=== PATIENT | female | born 1950 | race Caucasian/White ===

== ENCOUNTER 2020-12-21 05:53 | Emergency (ER) | payer MEDICARE, OTHER ==
[2020-12-21] MEDS ORDERED: Nitroglycerin 0.4 MG Tab.SL SL ONE (05:59)
[2020-12-21] MEDS ORDERED: Aspirin 81 MG Tab.Chew PO ONE (05:59)
--- NOTE | 2020-12-21 06:02 | EDM.PDOC ---
<Prerna Sanchez - Last Filed: 12/21/20 10:32> ED HPI GENERAL MEDICAL PROBLEM - General Stated Complaint: BELIEVES SHES HAVING HEART ATTACK Time Seen by Provider: 12/21/20 06:01 - Related Data Allergies Allergy/AdvReac Type Severity Reaction Status Date / Time kiwi Allergy Difficulty Verified 12/21/20 06:15 Swallowing latex Allergy Rash Verified 12/21/20 06:15 Home Meds: Home Meds Pantoprazole Sodium [Protonix] 40 mg PO DAILY 12/21/20 [History] Simvastatin [Zocor] 20 mg PO BEDTIME 12/21/20 [History] traZODone HCl [Trazodone HCl] 50 mg PO BEDTIME 12/21/20 [History] Course - Radiology Interpretation Free Text/Narrative:: [facility] Final Radiology Report Call: [phone] assistance Online chat: [email or web address] Name: PATTI VELASQUEZ Age: 70Years F Date: 12/21/2020 SSN: -- : [id number] Study: CR CHEST 1V FRONTAL Requesting Physician: SHAHZAD REESE Images: 1 Addl Studies: Provided Clinical History: chest pain Contrast: Contrast Medium: Contrast Amount: Contrast Method: CONFIDENTIALITY STATEMENT This report is intended only for use by the referring physician, and only in accordance with law. If you received this in error, call [phone]. Page 1 of 1 PROCEDURE INFORMATION: Exam: XR Chest Exam date and time: 12/21/2020 6:10 AM Age: 70 years old Clinical indication: Other: Chest pain TECHNIQUE: Imaging protocol: XR of the chest. Views: 1 view. COMPARISON: No relevant prior exams. FINDINGS: Lungs: Hazy consolidation in the lower lungs. The mid and upper lungs are clear. Pleural spaces: Unremarkable. No pleural effusion. No pneumothorax. Heart/Mediastinum: Unremarkable. No cardiomegaly. Bones/joints: [id number] degenerative changes of both shoulders. No fractures or dislocations. IMPRESSION: Airspace consolidation in the lower lungs may represent atelectasis or pneumonia. Thank you for allowing us to participate in the care of your patient. Dictated and Authenticated by: Trav Jacinto MD 12/21/2020 8:31 AM Central Time ([place] & [place]) - Re-Assessments/Exams Free Text/Narrative Re-Assessment/Exam: 12/21/20 Findings of examination, lab work, and imaging reviewed with patient and . Will treat pneumonia with Augmentin and Zithromax. Discussed supportiv e cares as well as red flag signs and symptoms which would warrant reevaluation reviewed. Patient and verbalized understanding and agreement with the plan of care. Departure - Departure Time of Disposition: 09:11 Disposition: Home, Self-Care 01 Condition: Good Clinical Impression: Atypical chest pain CAP (community acquired pneumonia) Qualifiers: Laterality: unspecified laterality Qualified Code(s): J18.9 - Pneumonia, unspecified organism Referrals: PCP,Not In Area [Primary Care Provider] - Forms: ED Department Discharge Additional Instructions: Rx: Augmentin Rx: Zithromax 1.) Take all of your antibiotics until gone, even as symptoms improve. 2.) You may take ibuprofen (Advil/Motrin) 400mg every six hours, as pain and persists. You may also take acetaminophen (Tylenol) 650mg every six hours, as pain persists. You may stagger these medications so you are receiving a dose every three hours. 3.) Follow up with primary care provider, or return to the emergency department, with fever, shaking chills, worsening symptoms, or persistent symptoms with 48 h ours of antibiotics. <Shahzad Reese - Last Filed: 12/23/20 03:56> ED HPI GENERAL MEDICAL PROBLEM - General Source of Information: Reports: Patient History Limitations: Reports: No Limitations - History of Present Illness INITIAL COMMENTS - FREE TEXT/NARRATIVE: ED with midsternal chest pain, started last night worse this am, pain worse with deep breathing denies prior heart hx. No vomiting, no radiation nor report fever chills. Left Chest Pain Score (Numeric/FACES): 8 ED ROS GENERAL - Review of Systems Review Of Systems: Comprehensive ROS is negative, except as noted in HPI. ED EXAM, GENERAL - Physical Exam Exam: See Below Exam Limited By: No Limitations General Appearance: Alert, Anxious, Moderate Distress Eye Exam: Bilateral Eye: EOMI Ears: Normal External Exam Nose: Normal Inspection Throat/Mouth: Normal Inspection Head: Atraumatic, Normocephalic Neck: Normal Inspection Respiratory/Chest: No Respiratory Distress, Lungs Clear, Other (shallow respirations) Cardiovascular: No: No Edema (1+) GI/Abdominal: Normal Bowel Sounds, Soft Back Exam: Normal Inspection Extremities: Normal Inspection, Normal Range of Motion Neurological: Alert, Oriented, Normal Cognition Psychiatric: Normal Affect Skin Exam: Warm, Dry, Intact, Normal Color #1 Interpretation EKG Date: 12/21/20 Time: 05:59 Rhythm: NSR Rate (Beats/Min): 77 [place]: Normal P-Wave: Present QRS: Normal QT: Normal Comparison: NA - No Prior EKG Course - Vital Signs Last Recorded V/S: Last Vital Signs Temp 97.5 F 12/21/20 05:58 Pulse 59 L 12/21/20 06:30 Resp 16 12/21/20 05:58 BP 77/47 L 12/21/20 06:30 Pulse Ox 93 L 12/21/20 06:34 - Orders/Labs/Meds Labs: Laboratory Tests 12/21/20 12/21/20 12/21/20 Range/Units 06:05 06:05 06:05 WBC 8.9 (5.0-10.0) 10^3/uL RBC 4.53 (4.2-5.4) 10^6/uL Hgb 14.3 (12.0-16.0) g/dL Hct 42.8 (37.0-47.0) % MCV 94.5 (80-100) fL MCH 31.6 (27.0-34.0) pg MCHC 33.4 (33.0-35.0) g/dL Plt Count 233 (150-450) 10^3/uL Neut % (Auto) 52.6 (42.2-75.2) % Lymph % (Auto) 34.5 (20.5-50.1) % Oliver % (Auto) 9.8 H (2-8) % Eos % (Auto) 2.8 (1.0-3.0) % Baso % (Auto) 0.3 (0.0-1.0) % PT (9.0-12.0) SEC INR (0.9-1.2) D-Dimer, Quantitative 112 (0-400) ng/mL Sodium 143 (136-145) mmol/L Potassium 4.1 (3.5-5.1) mmol/L Chloride 104 (98-107) mmol/L Carbon Dioxide 30 (21-32) mmol/L Anion Gap 13.1 H (7-13) mEq/L BUN 14 (7-18) mg/dL Creatinine 0.77 (0.55-1.02) mg/dL Est Cr Clr Drug Dosing 51.30 mL/min Estimated GFR (MDRD) > 60 BUN/Creatinine Ratio 18.2 (No establ ref range) Glucose 101 H (70-99) mg/dL Calcium 9.3 (8.5-10.1) mg/dL Magnesium 2.0 (1.8-2.4) mg/dL Total Bilirubin 0.4 (0.2-1.0) mg/dL AST 24 (15-37) U/L ALT 44 (14-59) U/L Alkaline Phosphatase 75 (46-116) U/L Troponin I High Sens 11 (<=51) pg/mL Total Protein 7.2 (6.4-8.2) g/dL Albumin 3.7 (3.4-5.0) g/dL Globulin 3.5 Albumin/Globulin Ratio 1.1 Amylase 74 (25-115) U/L Lipase 216 (73-393) U/L Urine Color (YELLOW) Urine Appearance (CLEAR) Urine pH (5.0-9.0) Ur Specific [place] (1.005-1.030) Urine Protein (NEGATIVE) Urine Glucose (UA) (NEGATIVE) Urine Ketones (NEGATIVE) Urine Occult Blood (NEGATIVE) Urine Nitrite (NEGATIVE) Urine Bilirubin (NEGATIVE) Urine Urobilinogen (0.2-1.0) mg/dL Ur Leukocyte Esterase (NEGATIVE) SARS-CoV-2 RNA (MERARI) (NEGATIVE) 12/21/20 12/21/20 12/21/20 Range/Units 06:05 06:18 07:05 WBC (5.0-10.0) 10^3/uL RBC (4.2-5.4) 10^6/uL Hgb (12.0-16.0) g/dL Hct (37.0-47.0) % MCV (80-100) fL MCH (27.0-34.0) pg MCHC (33.0-35.0) g/dL Plt Count (150-450) 10^3/uL Neut % (Auto) (42.2-75.2) % Lymph % (Auto) (20.5-50.1) % Oliver % (Auto) (2-8) % Eos % (Auto) (1.0-3.0) % Baso % (Auto) (0.0-1.0) % PT 9.6 (9.0-12.0) SEC INR 1.0 (0.9-1.2) D-Dimer, Quantitative (0-400) ng/mL Sodium (136-145) mmol/L Potassium (3.5-5.1) mmol/L Chloride (98-107) mmol/L Carbon Dioxide (21-32) mmol/L Anion Gap (7-13) mEq/L BUN (7-18) mg/dL Creatinine (0.55-1.02) mg/dL Est Cr Clr Drug Dosing mL/min Estimated GFR (MDRD) BUN/Creatinine Ratio (No establ ref range) Glucose (70-99) mg/dL Calcium (8.5-10.1) mg/dL Magnesium (1.8-2.4) mg/dL Total Bilirubin (0.2-1.0) mg/dL AST (15-37) U/L ALT (14-59) U/L Alkaline Phosphatase (46-116) U/L Troponin I High Sens (<=51) pg/mL Total Protein (6.4-8.2) g/dL Albumin (3.4-5.0) g/dL Globulin Albumin/Globulin Ratio Amylase (25-115) U/L Lipase (73-393) U/L Urine Color Yellow (YELLOW) Urine Appearance Slightly cloudy (CLEAR) Urine pH 7.5 (5.0-9.0) Ur Specific [place] 1.025 (1.005-1.030) Urine Protein Negative (NEGATIVE) Urine Glucose (UA) Negative (NEGATIVE) Urine Ketones Negative (NEGATIVE) Urine Occult Blood Negative (NEGATIVE) Urine Nitrite Negative (NEGATIVE) Urine Bilirubin Negative (NEGATIVE) Urine Urobilinogen 0.2 (0.2-1.0) mg/dL Ur Leukocyte Esterase Negative (NEGATIVE) SARS-CoV-2 RNA (MERARI) Negative (NEGATIVE) Meds: Medications Discontinued Medications Generic Name Dose Route Start Last Admin Trade Name Freq PRN Reason Stop Dose Admin Al Hydroxide/Mg Hydroxide 30 ml 12/21/20 06:53 12/21/20 07:17 Gi Cocktail Oral Solution 30 Ml PO 12/21/20 06:54 30 ml ONETIME ONE Administration Aspirin 324 mg 12/21/20 05:59 12/21/20 06:07 Aspirin 81 Mg Tab.Chew PO 12/21/20 06:00 324 mg ONETIME ONE Administration Sodium Chloride 1,000 mls @ 999 mls/hr 12/21/20 06:30 12/21/20 06:31 Normal Saline IV 12/21/20 07:30 999 mls/hr .BOLUS ONE Administration Ketorolac Tromethamine 30 mg 12/21/20 08:20 12/21/20 08:35 Ketorolac 30 Mg/Ml Sdv IVPUSH 12/21/20 08:21 30 mg ONETIME ONE Administration Nitroglycerin 0.4 mg 12/21/20 05:59 12/21/20 06:12 Nitroglycerin 0.4 Mg Tab.Sl SL 12/21/20 06:00 0.4 mg ONETIME ONE Administration Ondansetron HCl 4 mg 12/21/20 06:26 12/21/20 06:30 Ondansetron 4 Mg/2 Ml Sdv IVPUSH 12/21/20 06:27 4 mg ONETIME ONE Administration
[2020-12-21] MEDS ORDERED: Ondansetron 4 MG/2 ML SDV IVPUSH ONE (06:26)
[2020-12-21] MEDS ORDERED: Sodium Chloride 0.9% 1,000 ML IV ONE (06:30)
[2020-12-21 06:36] LABS: ANION GAP 13.1 mEq/L (7-13); CHLORIDE,CL 104 mmol/L (98-107); SODIUM,NA 143 mmol/L (136-145)
[2020-12-21] MEDS ORDERED: GI Cocktail Oral Solution 30 ML PO ONE (06:53)
[2020-12-21] MEDS ORDERED: Ketorolac 30 MG/ML SDV IVPUSH ONE (08:20)
--- NOTE | 2020-12-21 08:31 | CR ---
PROCEDURE INFORMATION: Exam: XR Chest Exam date and time: 12/21/2020 6:10 AM Age: 70 years old Clinical indication: Other: Chest pain TECHNIQUE: Imaging protocol: XR of the chest. Views: 1 view. COMPARISON: No relevant prior exams. FINDINGS: Lungs: Hazy consolidation in the lower lungs. The mid and upper lungs are clear. Pleural spaces: Unremarkable. No pleural effusion. No pneumothorax. Heart/Mediastinum: Unremarkable. No cardiomegaly. Bones/joints: [id number] degenerative changes of both shoulders. No fractures or dislocations. IMPRESSION: Airspace consolidation in the lower lungs may represent atelectasis or pneumonia.
== END 2020-12-21 09:26 | disposition home or self-care (01) ==
LOC: DL.ED 05:53
DX: J18.9 Pneumonia, unspecified organism (principal); Z91.018 Allergy to other foods; Z91.040 Latex allergy status; Z79.899 Other long term (current) drug therapy; Z20.822 Contact with and (suspected) exposure to COVID-19
CPT/HCPCS: 36415; 71045; 80053; 81003; 82150; 83690; 83735; 84484; 85025; 85379; 85610; 93005; 96374; 96375; 99285; A9270; J1885; J2405; J7030; U0002